=== PATIENT | female | born 1935 | race African-American/Black ===

== ENCOUNTER 2019-11-24 14:24 | Emergency (ER) | payer MEDICARE, OTHER ==
[~2019-11-24] VITALS: Ht 162.6 cm; Wt 59.0 kg
[2019-11-24 14:50] VITALS: BP 155/76
[2019-11-24] MEDS ORDERED: ASPIRIN81 MG ORAL (15:10)
[2019-11-24] MEDS ORDERED: HYDROCHLOROTH12.5 MG ORAL (15:10)
[2019-11-24] MEDS ORDERED: VITAMIN D3 COM1 EACH PO (15:13)
[2019-11-24] MEDS ORDERED: PANTOPRAZOLE SO40 MG ORAL (15:14)
[2019-11-24] MEDS ORDERED: Prevagen ORAL (15:14)
[2019-11-24] MEDS ORDERED: Naproxen 500mg tab ORAL ONE (15:15)
[2019-11-24] MEDS ORDERED: Methocarbamol 500mg tab ORAL ONE (15:15)
--- NOTE | 2019-11-24 15:19 | Emergency Room Report ---
History of Present Illness General Chief Complaint: Lower Back Pain or Injury Source: Patient Present Illness HPI 84-year-old -[place] female with past medical history of hypertension, GERD, osteoarthritis presents to the ER with complaints of right paraspinal back pain and right flank pain since falling from ground-level height yesterday. Patient was in her garden trying to coal picker a heavy planter when she subsequently fell. Denies head trauma, loss of consciousness, ataxia, vision changes, use of blood thinners, urinary retention, bowel or bladder incontinence , midline spinal pain, or difficulty with sensation. The patient's symptoms were [gradual] onset, severity was [moderate], duration since 1 day Denies any associated symptoms of syncope, chest pain, shortness of breath, cough, fever, dysuria, hematuria, melena, hematochezia Past medical history: HTN, GERD, osteopenia Past surgical history: Denies Smoking: Denies Alcohol use: Denies Drug use: Denies Review of systems: CONST: No fevers or chills, No night sweats PULMONARY: No productive cough, No shortness of breath CARDIAC: No chest pain, No palpitations GI: No vomiting, No diarrhea , No melena_or_BRBPR : No dysuria, No hematuria, No discharge NEURO: No new_focal_weakness_or_numbness, No confusion, No vision changes MSK: Back pain, R flank pain 14 point Review of Systems is otherwise negative except per HPI Physical Exam: GENERAL: Awake_alert_ nontoxic, no acute distress Spo2 98% on room air, normal EYES: Extraocular muscles are intact. Conjunctivae clear. Lids without swelling ENT: External nose and ear normal_in_appearance. Oropharynx clear. Head_ atraumatic, Moist_oral_mucosa NECK: No JVD. No meningismus. No thyromegaly. Supple. Trachea midline. No midline cervical, thoracic, lumbar step-offs. RESP: Normal respiratory effort. Symmetric rise. No stridor. Clear_to_ auscultation_No_rales_No_wheezes CARDIAC: Regular rate and regular rhythm on_auscultation No_significant pedal edema. ABDOMEN: Soft. Nondistended. Nontender_No_rebound_or_guarding. MSK: Normal muscle tone, without rigidity. Extremities without asymmetric deformity or swelling. Right paraspinal lumbar tenderness to palpation. No step-offs. SKIN: Warm and dry. No visible cyanosis or pallor NEUROLOGIC: Alert, oriented x3. Motor_and_sensation_grossly_intact. Lower extremity: SI LT. No saddle anesthesia. Plus 5 out of 5 right hip flexion, extension. Plus 5 out of 5 right knee flexion, extension. Plus 5 out of 5 right ankle flexion, extension. No truncal ataxia. Gait_normal Psych: Normal mood and affect, normal judgment and insight - COORDINATION OF CARE Case was discussed with: Patient Any and imaging that were ordered were interpreted as part of the medical decision making: Medical Decision Making/Plan: Differential diagnosis includes musculoskeletal pain, muscle spasm / sprain, vertebral fracture, spinal epidural abscess, spinal epidural hematoma, pyelonephritis, kidney stone, AAA, among others. Patient is hemodynamically stable. Neurologically intact. The patient has normal dorsalis pedis pulses, and no pulsatile mass felt on exam. The patients profile was overall low risk for AAA. The patient has no significant red flags on history or exam. Patient has no history of malignancy, active or distant history. Patient has no B symptoms: no unintentional weight loss, night sweats, or fevers. No longstanding steroid or other immunosuppressant usage. No mechanism for significant trauma. Patient has no vertebral deformity or midline tenderness and has a normal gait. Patient has no significant risk factors for spinal epidural emergency such as fever, IVDU, HIV, or anticoagulant use. Patient is neurologically intact without any lower extremity weakness / numbness , saddle anesthesia, urinary retention or fecal incontinence. No evidence of any emergent process of the spinal cord or cauda equina at this time. The patients symptoms appear consistent with a musculoskeletal origin. The patient was counseled that they need to see their primary medical doctor in the next 1-2 days for reevaluation and further treatment, and to return immediately if symptoms change or worsen. Allergies: Coded Allergies: AMLODIPINE (Verified Allergy, Unknown, 11/24/19) ATENOLOL (Verified Allergy, Unknown, 11/24/19) BENAZEPRIL (Verified Allergy, Unknown, 11/24/19) HYDRALAZINE (Verified Allergy, Unknown, 11/24/19) PROCHLORPERAZINE (Verified Allergy, Unknown, 11/24/19) TETRACYCLINE (Verified Allergy, Unknown, 11/24/19) COVID-19 Screening Contact w/high risk pt: No Experienced COVID-19 symptoms?: No COVID-19 Testing performed [employer]: No Nursing Documentation-PMH Past Medical History: No History, Except For Physical Exam Vital Signs Date Time Temp Pulse Resp B/P (MAP) Pulse Ox O2 Delivery O2 Flow Rate FiO2 11/24/19 14:50 98.2 67 16 155/76 (102) 99 Room Air Sp02 EP Interpretation: reviewed, normal Medical Decision Making Diagnostic Impression: Primary Impression: Low back pain Additional Impressions: Fall Muscle spasm Lumbosacral strain CT/MRI/US Diagnostic Results CT/MRI/US Diagnostic Results : Impression Same day CT abdomen pelvis Findings: Osseous structures: Lumbar lordosis is maintained. There is moderate lumbar scoliosis. No acute fracture. Vertebral body heights are maintained. There is grade 1 anterolisthesis of L5 on S1 without associated pars fracture. There are multilevel discogenic degenerative changes characterized by disc space narrowing, endplate osteophyte formation, and multilevel lateral facet joint arthrosis. Soft tissues: Mild paravertebral muscular atrophy. Please refer to separately dictated report of CT abdomen and pelvis for more complete evaluation of imaged abdominal structures Impression: 1. No acute fracture or acute malalignment. 2. Grade 1 anterolisthesis of L5 on S1 without associated pars fracture. Reevaluation Time: 15:30 Last Vital Signs Date Time Temp Pulse Resp B/P (MAP) Pulse Ox O2 Delivery O2 Flow Rate FiO2 11/24/19 14:50 98.2 67 16 155/76 (102) 99 Room Air Status: improved Disposition: HOME, SELF-CARE Admit Decision Time: 15:45 Condition: Stable Scripts Cephalexin* (KEFLEX*) 500 Mg Capsule 500 MG ORAL EVERY 12 HOURS, #14 CAP 0 Refills Prov: Christine Banda.O. 11/24/19 Methocarbamol* (ROBAXIN-750*) 750 Mg Tablet 750 MG PO TID, #21 TAB 0 Refills Prov: Remigio Bandae D.O. 11/24/19 Acetaminophen* (TYLENOL EXTRA STRENGTH*) 500 Mg Tablet 500 MG ORAL Q8H PRN for Prn Headache/Temp > 101, #30 TAB 0 Refills Prov: Remigio Bandae D.O. 11/24/19 Naproxen Sodium (Naproxen Cr) 500 Mg Tbmp.24hr 500 MG PO BID for pain for 10 Days, #20 TAB Prov: Christine Banda D.O. 11/24/19 Patient Instructions: Lumbosacral Strain, Back Pain, Adult Christine Banda D.O. Nov 24, 2019 15:19
[2019-11-24 15:53] LABS: APPEARANCE,URINE CLEAR; BILIRUBIN, URINE NEGATIVE (NEGATIVE); GLUCOSE, URINE (UA) NEGATIVE (NEGATIVE); KETONES,URINE 4+ (NEGATIVE); LEUKOCYTE ESTERASE ,URINE 1+ (NEGATIVE); NITRITE,URINE NEGATIVE (NEGATIVE); PH,URINE 5 (4.5-8.0); PROTEIN,URINE 1+ (NEGATIVE); UROBILINOGEN,URINE NORMAL MG/DL (0.0-1.0)
[2019-11-24 15:57] LABS: COLOR,URINE YELLOW
[2019-11-24] MEDS ORDERED: NAPROXEN CR500 MG PO (16:16)
[2019-11-24] MEDS ORDERED: ROBAXIN-750750 MG PO (16:16)
[2019-11-24] MEDS ORDERED: CEPHALEXIN500 MG ORAL (16:16)
[2019-11-24] MEDS ORDERED: TYLENOL EXTRA500 MG ORAL (16:16)
--- NOTE | 2019-11-24 16:53 | Diagnostic Imaging Report ---
Indication: Back pain Technique: CT L Spine no Contrast CT dose: Total DLP 32.7 mGycm; CTDI vol 6.7 mGy Comparison: Same day CT abdomen pelvis Findings: Osseous structures: Lumbar lordosis is maintained. There is moderate lumbar scoliosis. No acute fracture. Vertebral body heights are maintained. There is grade 1 anterolisthesis of L5 on S1 without associated pars fracture. There are multilevel discogenic degenerative changes characterized by disc space narrowing, endplate osteophyte formation, and multilevel lateral facet joint arthrosis. Soft tissues: Mild paravertebral muscular atrophy. Please refer to separately dictated report of CT abdomen and pelvis for more complete evaluation of imaged abdominal structures Impression: 1. No acute fracture or acute malalignment. 2. Grade 1 anterolisthesis of L5 on S1 without associated pars fracture. The CT scanner at [facility] is accredited by the [employer] and the scans are performed using protocols designed to limit radiation exposure to as low as reasonably achievable to attain images of sufficient resolution adequate for diagnostic evaluation.
--- NOTE | 2019-11-24 17:28 | Diagnostic Imaging Report ---
CT ABDOMEN AND PELVIS WITHOUT CONTRAST INDICATION: Abdominal pain TECHNIQUE: Continuous helical transaxial imaging of the abdomen and pelvis was obtained from the lung bases to the pubic symphysis. Coronal 2-D reformats were also obtained. Study obtained in a Siemens sensation [address] Automatic Exposure Control was utilized. Total Dose length Product (DLP): 326.[address] Dose Index Volume (CTDIvol): 6.7mGy COMPARISON: Same day CT lumbar spine FINDINGS: Lower chest:: Unremarkable Hepatobiliary:: Unremarkable Genitourinary:: No hydronephrosis or nephrolithiasis. Urinary bladder is displaced left laterally and indented secondary to mass effect of adjacent heavily myomatous uterus. Several large calcified myomas are identified, incompletely evaluated in the absence of intravenous contrast. Adrenals:: Unremarkable Pancreas:: Unremarkable Gastrointestinal:: Evaluation gastrointestinal tract is limited in the absence of oral contrast. No evidence of obstruction. Appendix is normal. Spleen: : Unremarkable Peritoneum:: Unremarkable Bones and soft tissues:: There are multilevel discogenic degenerative changes of the visualized spine. No displaced rib fractures identified. IMPRESSION: 1. No acute findings in the abdomen or pelvis. 2. Markedly myomatous uterus. The CT scanner at [facility] is accredited by the [employer] and the scans are performed using protocols designed to limit radiation exposure to as low as reasonably achievable to attain images of sufficient resolution adequate for diagnostic evaluation
[2019-11-24 17:50] VITALS: BP 149/72
[2019-11-24 18:05] VITALS: BP 149/72
== END 2019-11-24 18:05 | disposition home or self-care (01) ==
LOC: EMR 15:15
DX: M54.5 Low back pain (principal); M62.838 Other muscle spasm; S39.012A Strain of muscle, fascia and tendon of lower back, initial encounter; I10 Essential (primary) hypertension; K21.9 Gastro-esophageal reflux disease without esophagitis; M19.90 Unspecified osteoarthritis, unspecified site; W19.XXXA Unspecified fall, initial encounter; Y92.9 Unspecified place or not applicable; Z88.8 Allergy status to other drugs, medicaments and biological substances
CPT/HCPCS: 72131; 74176; 81001; 99284